=== PATIENT | female | born 1975 | race Caucasian/White ===

== ENCOUNTER 2020-12-20 06:19 | Emergency (ER) | payer MEDICAID ==
[~2020-12-20] VITALS: Ht 157.4 cm; Wt 72.6 kg
[2020-12-20 07:05] LABS: BILIRUBIN Negative (Negative); BLOOD Trace-Lysed (Negative); CLARITY Clear (Clear); COLOR Yellow (Yellow); GLUCOSE Negative (Negative); KETONE Negative (Negative); LEUKO ESTERASE 1+ (Negative); NITRITE Negative (Negative); PH 5.5 (4.5-8.0); UROBILINOGEN 0.2 E.U./dl (0.0-1.0)
[2020-12-20] MEDS ORDERED: ACYCLOVIR800 MG PO (09:09)
== END 2020-12-20 09:17 | disposition home or self-care (01) ==
LOC: ED 06:19
PROVIDERS: Emergency Medicine
DX: B02.9 Zoster without complications (principal); N94.10 Unspecified dyspareunia